=== PATIENT | male | born 1975 | race African-American/Black ===

== ENCOUNTER 2023-05-06 01:51 | Emergency (ER) | payer MEDICAID ==
[~2023-05-06] VITALS: Ht 180.3 cm; Wt 84.0 kg
[~2023-05-06 01:51] MED LIST: insulin
[2023-05-06 01:52] VITALS: BP 129/76; RESP 18; TEMP 98.3; O2SAT 98
[2023-05-06 01:53] VITALS: PULSE 105
[2023-05-06] MEDS ORDERED: INSU100I28 SQ (02:13)
[2023-05-06] MEDS ORDERED: NPH,100V SQ (02:23)
[2023-05-06 02:55] LABS: CALCIUM 8.1 mg/dL (8.5-10.1); CHLORIDE 110 mEq/L (98-107); POTASSIUM 3.9 mEq/L (3.5-5.1); SODIUM 143 mEq/L (136-145)
[2023-05-06 02:59] LABS: CARBON DIOXIDE 28 mEq/L (21-32); CREATININE 0.8 mg/dL (0.6-1.3); GLUCOSE 313 mg/dL (70-105); UREA NITROGEN BLOOD 7 mg/dL (7-21)
== END 2023-05-06 03:46 | disposition home or self-care (01) ==
LOC: ER 01:51
DX: E11.65 Type 2 diabetes mellitus with hyperglycemia (principal)
CPT/HCPCS: 36415; 80048; 82962; 99283

== ENCOUNTER 2023-07-22 00:33 | Emergency (ER) | payer MEDICAID, OTHER ==
[~2023-07-22] VITALS: Ht 182.9 cm; Wt 87.0 kg
[~2023-07-22 00:33] MED LIST changes: +INSU100I28 SQ; +NPH,100V SQ
[2023-07-22 00:52] VITALS: BP 150/83; PULSE 81; RESP 18; TEMP 98.5; O2SAT 99
[2023-07-22] MEDS ORDERED: INSNPH SUBCUT (01:07)
== END 2023-07-22 03:10 | disposition home or self-care (01) ==
LOC: ER 00:33
DX: E11.9 Type 2 diabetes mellitus without complications (principal); F12.90 Cannabis use, unspecified, uncomplicated; Z76.0 Encounter for issue of repeat prescription
CPT/HCPCS: 99282

== ENCOUNTER 2023-10-22 12:11 | Emergency (ER) | payer SELFPAY ==
[~2023-10-22] VITALS: Ht 182.9 cm; Wt 88.0 kg
[~2023-10-22 12:11] MED LIST changes: +INSNPH SUBCUT
[2023-10-22 12:19] VITALS: BP 152/84; PULSE 75; RESP 16; TEMP 98.8; O2SAT 100
== END 2023-10-22 13:19 | disposition home or self-care (01) ==
LOC: ER 12:11
DX: E11.9 Type 2 diabetes mellitus without complications (principal); Z76.0 Encounter for issue of repeat prescription
CPT/HCPCS: 99281

== ENCOUNTER 2024-09-20 00:37 | Emergency (ER) | payer MEDICAID ==
[~2024-09-20] VITALS: Ht 182.9 cm; Wt 91.0 kg
[2024-09-20 00:48] VITALS: TEMP 36.7; O2SAT 100
[2024-09-20] MEDS ORDERED: INSU100I28 SQ (01:04)
[2024-09-20] MEDS ORDERED: NPH,100V SQ (01:04)
[2024-09-20 01:28] VITALS: BP 130/77; PULSE 78; RESP 17; O2SAT 99
== END 2024-09-20 01:29 | disposition home or self-care (01) ==
LOC: ER 00:37
DX: Z76.0 Encounter for issue of repeat prescription (principal); E11.9 Type 2 diabetes mellitus without complications; Z79.4 Long term (current) use of insulin
CPT/HCPCS: 99281

== ENCOUNTER 2024-10-21 18:23 | Emergency (ER) | payer MEDICAID ==
[~2024-10-21] VITALS: Ht 182.9 cm; Wt 91.0 kg
[2024-10-21 18:23] VITALS: O2SAT 98
[2024-10-21 18:34] VITALS: BP 120/63; PULSE 90; RESP 14; TEMP 36.7; O2SAT 99
[2024-10-21 19:23] LABS: BASOPHILS % 0.8 % (0.0-2.0); EOSINOPHILS % 2.2 % (0.0-5.0); HEMATOCRIT. 41.9 % (42.0-52.0); HEMOGLOBIN. 14.5 g/dL (14.0-18.0); LYMPHOCYTES % 44.1 % (20.0-50.0); MEAN CORPUSCULAR HEMOGLOBIN 33.1 pg (28.0-32.0); MEAN CORPUSCULAR HGB CONC 34.7 g/dL (31.0-37.0); MEAN CORPUSCULAR VOLUME 95.6 fL (80.0-94.0); MEAN PLATELET VOLUME 8.5 fl (7.4-10.4); MONOCYTES % 12.6 % (2.0-8.0); NEUTROPHILS % 40.3 % (40.0-76.0); PLATELET 159 x1000/uL (130-400); RED BLOOD CELL COUNT 4.39 mill/uL (4.7-6.1); RED CELL DISTRIBUTION WIDTH 13.1 % (11.6-14.6); WHITE BLOOD COUNT 3.1 x1000/uL (4.5-11.0)
[2024-10-21 19:26] LABS: CHLORIDE 103 mEq/L (98-107); POTASSIUM 4.1 mEq/L (3.5-5.1); SODIUM 136 mEq/L (136-145)
[2024-10-21 19:27] LABS: CARBON DIOXIDE 29 mEq/L (21-32)
[2024-10-21 19:28] LABS: CALCIUM 8.5 mg/dL (8.7-10.4)
[2024-10-21 19:32] LABS: CREATININE 1.5 mg/dL (0.6-1.3); UREA NITROGEN BLOOD 12 mg/dL (9-23)
[2024-10-21 19:35] LABS: BETA HYDROXYBUTYRATE 0.2 mMol/L (0.0-0.3)
[2024-10-21 20:08] LABS: GLUCOSE 413 mg/dL (70-105)
[2024-10-21 20:46] LABS: CLARITY URINE CLEAR (CLEAR); COLOR URINE YELLOW (YELLOW); GLUCOSE URINE 3+ (NEGATIVE); KETONES URINE NEGATIVE (NEGATIVE); LEUKOCYTE ESTERASE URINE NEGATIVE (NEGATIVE); NITRITE URINE NEGATIVE (NEGATIVE); OCCULT BLOOD URINE NEGATIVE (NEGATIVE); PROTEIN URINE NEGATIVE (NEGATIVE); UROBILINOGEN URINE 0.2 E.U./dL (0.2-1.0)
[2024-10-21 21:10] LABS: BACTERIA URINE NONE SEEN; RBC URINE NONE SEEN /hpf (0-2); SQUAMOUS EPITHELIAL CELL URINE RARE /lpf (RARE/1+); WBC URINE 0-2 /hpf (0-2)
[2024-10-21] MEDS ORDERED: PEN1DIS.48 MC (23:15)
== END 2024-10-21 20:59 | disposition home or self-care (01) ==
LOC: ER 18:23
DX: E11.65 Type 2 diabetes mellitus with hyperglycemia (principal); F12.90 Cannabis use, unspecified, uncomplicated; Z76.0 Encounter for issue of repeat prescription; Z79.4 Long term (current) use of insulin; Z79.899 Other long term (current) drug therapy
CPT/HCPCS: 36415; 80048; 81003; 82010; 82962; 85025; 99283

== ENCOUNTER 2024-10-21 22:27 | Emergency (ER) | payer MEDICAID ==
[2024-10-21 22:45] VITALS: PULSE 86; RESP 20; O2SAT 100
[2024-10-21] MEDS ORDERED: PEN1DIS.48 MC (23:15)
== END 2024-10-21 23:09 | disposition home or self-care (01) ==
LOC: ER 22:27
DX: E11.9 Type 2 diabetes mellitus without complications (principal); Z76.0 Encounter for issue of repeat prescription; Z79.4 Long term (current) use of insulin; Z79.899 Other long term (current) drug therapy
CPT/HCPCS: 99281; 99282